=== PATIENT | female | born 1960 | race Caucasian/White ===

== ENCOUNTER → 2017-06-27 | Outpatient (CLI) | payer OTHER ==
[~2017-06-27] MED LIST: CHOL100027 PO; MULT1CHW4 PO; PRLSR20 PO; SERT1TAB68 PO
== END | disposition home or self-care (01) ==
LOC: C.LAB 07:58
PROVIDERS: ATTEND Family Medicine
DX: Z11.59 Encounter for screening for other viral diseases (principal)

== ENCOUNTER → 2017-06-27 | Outpatient (CLI) | payer OTHER ==
[2017-06-27 10:07] LABS: GLUCOSE,FASTING 87 mg/dl (70-99)
== END | disposition home or self-care (01) ==
LOC: C.LAB 08:03
PROVIDERS: ATTEND Family Medicine
DX: Z13.1 Encounter for screening for diabetes mellitus (principal); Z13.220 Encounter for screening for lipoid disorders

== ENCOUNTER → 2017-07-19 | Outpatient (CLI) | payer OTHER ==
[2017-07-19 09:26] LABS: CHOLESTEROL/HDL RATIO 2.9
== END | disposition home or self-care (01) ==
LOC: C.LABSPEC 07:57
PROVIDERS: ATTEND Family Medicine
DX: Z13.220 Encounter for screening for lipoid disorders (principal)

== ENCOUNTER → 2018-01-01 | Outpatient (CLI) | payer OTHER ==
--- NOTE | 2018-01-02 14:03 | MAMMOGRAPHY REPORT ---
BILATERAL DIGITAL SCREENING MAMMOGRAM TOMOSYNTHESIS WITH CAD: 01/01/2018 CLINICAL HISTORY: Routine screening. Patient has no complaints. TECHNIQUE: Breast tomosynthesis in addition to standard 2D mammography was performed. Current study was also evaluated with a Computer Aided Detection (CAD) system. COMPARISON: Comparison is made to exams dated: 09/07/2016 mammogram, 08/31/2015 mammogram, 03/17/2014 mammogram, 03/05/2013 mammogram, 02/28/2012 mammogram, and 02/20/2011 mammogram - [facility] enter. BREAST COMPOSITION: There are scattered areas of fibroglandular density in both breasts. FINDINGS: The parenchymal pattern is unchanged. No developing mass, architectural distortion or clus ter of suspicious microcalcifications is seen in either breast. IMPRESSION: ACR BI-RADS CATEGORY 2: BENIGN There is no mammographic evidence of malignancy. A 1 year screening mammogram is recommended. The pa tient will receive written notification of the results. Approximately 10% of breast cancers are not detected with mammography. A negative mammographic report should not delay biopsy if a clinically suggestive mass is present. Ivana Champion M.D. ay/:01/01/2018 18:03:08 Route Process Administrator: Denisse MERCEDES(Lizett)(Anjali)(BD), [facility] letter sent: Normal 1/2 BI-RADS Code: ACR BI-RADS Category 2: Benign
== END | disposition home or self-care (01) ==
LOC: C.MAMM 14:49
PROVIDERS: ATTEND Family Medicine
DX: Z12.31 Encounter for screening mammogram for malignant neoplasm of breast (principal)

== ENCOUNTER → 2018-07-17 | Outpatient (CLI) | payer OTHER | END | disposition home or self-care (01) | LOC: C.LAB 07:27 | PROVIDERS: ATTEND Family Medicine | DX: Z00.00 Encounter for general adult medical examination without abnormal findings (principal) ==

== ENCOUNTER 2021-01-18 04:57 | Observation (INO) ==
[2021-01-12 14:09] LABS: Basophils # (auto) 0.01 K/uL (0-0.2); Basophils % (auto) 0.2 %; Eosinophils # (auto) 0.01 K/uL (0-0.5); Eosinophils % (auto) 0.2 %; Hematocrit (blood only) 40.3 % (37-47); Hemoglobin 13.2 g/dL (12.0-16.0); Lymphocytes # (auto) 0.71 K/uL (1.2-3.4); Lymphocytes % (auto) 13.5 %; Mean Corpuscular Hemoglobin 30.3 pg (25-34); Mean Corpuscular Hgb Conc 32.8 g/dL (32-36); Mean Corpuscular Volume 92.6 fL (80-100); Mean Platelet Volume 10.1 fL (7.4-10.4); Monocytes # (auto) 0.05 K/uL (0.11-0.59); Neutrophils # (auto) 4.47 K/uL (1.4-6.5); Neutrophils % (auto) 85.1 %; Platelet Count 296 K/uL (130-400); RDW Coefficient of Variation 12.8 % (11.5-14.5); RDW Standard Deviation 43.7 fL (36.4-46.3); Red Blood Count 4.35 M/uL (4.2-5.4); White Blood Count 5.25 K/uL (4.8-10.8)
[2021-01-12 14:13] LABS: Partial Thromboplastin Ratio 1.1; Partial Thromboplastin Time 28.1 Seconds (21.0-31.0); Prothrombin Time 10.2 Seconds (9.0-12.0)
[2021-01-12 17:16] LABS: BUN Creatinine Ratio 20.1 (10-20); Blood Urea Nitrogen 18 mg/dl (7-18); Carbon Dioxide 22 mmol/L (21-32); Chloride 107 mmol/L (98-107); Glucose 160 mg/dl (70-99); Sodium 139 mmol/L (136-145)
--- NOTE | 2021-01-14 09:19 | Anesthesiology Consultation ---
Date of Service January 14, 2021 Assessment & Plan (1) Encounter for pre-operative examination: Chart Review Chart Review: Acceptable Risk for Surgery and Patient NOT seen in Pre Admission Testing Per nursing assessment 01/14/21, pt resides and works in [facility]. Works in [employer]- wears full PPE at work. Last day of work was 01/10/21- will not return until after surgery. Wears mask (N-95), uses good hand hygiene and socially distances. No known Covid positive contacts or Covid related symptoms. No known Covid infection in the past 90 days. Pt had preop Covid testing 01/12/21= negative. History Surgery Operation Date: 01/18/21 13:00 Proposed Procedures p Right Anterior Total Hip Arthroplasty - Thierry Skelton, Height/Weight Height: 5 ft 4 in Weight: 75.75 kg Allergies Allergy/AdvReac Type Severity Reaction Status Date / Time Sulfa (Sulfonamide Allergy Unknown TONGUE Verified 01/14/21 08:02 Antibiotics) SWELLING, RASH erythromycin base AdvReac Unknown VOMITING Verified 01/14/21 08:02 Medications Home Medications Medication Instructions Recorded Confirmed Last Taken multivitamin 1 tab PO QAM 07/22/19 01/14/21 Unknown escitalopram oxalate 10 mg tablet 10 mg PO HS 08/16/20 01/14/21 Unknown omeprazole 20 mg capsule,delayed 20 mg PO HS 12/20/20 01/14/21 Unknown release methylprednisolone 4 mg tablets in 4 mg PO UD #21 ea 01/11/21 01/14/21 Unknown a dose pack oxycodone-acetaminophen 5 mg-325 1 tab PO Q6H PRN #30 tab 01/11/21 01/14/21 Unknown mg tablet acetaminophen [Tylenol Extra 500 mg PO Q6H PRN 01/14/21 01/14/21 Unknown Strength] lactobacillus combination no.4 3,000 mmu cells PO HS 01/14/21 01/14/21 Unknown [Probiotic] Past Medical History Medical History GERD (gastroesophageal reflux disease) UNDER CONTROL History of depression Osteoarthritis Past Family History Family History Mother Bladder cancer Multiple sclerosis Father Prostate cancer Colorectal cancer Grandmother (Paternal) Family history of diabetes mellitus Past Surgical History Surgical History History of colonoscopy History of tonsillectomy and adenoidectomy History of wisdom tooth extraction Status post surgical removal of pilonidal cyst Social History Smoking Status: Never smoker Do You Dip or Chew Tobacco: No Hx Alcohol Use: Yes Alcohol type: beer and wine alcohol intake frequency: a few times a week Hx Substance Use: Yes substance use type: prescription drug Testing Laboratory Results 01/12/21 12:13 01/12/21 12:13 PT 10.2 Seconds (9.0-12.0) 01/12/21 12:13 INR 1.0 (0.9-1.1) 01/12/21 12:13 APTT 28.1 Seconds (21.0-31.0) 01/12/21 12:13 Blood Type O Positive 01/12/21 12:13 Antibody Screen NEGATIVE 01/12/21 12:13 Electrocardiogram Date: 01/13/21 Findings: + NSR @ (70bpm) Normal EKG. Chest X-Ray Date: 01/13/21 Findings: + NAD
--- NOTE | 2021-01-17 16:47 | History & Physical Report ---
Date of Service January 17, 2021 Assessment & Plan (1) Degenerative joint disease of right hip: We will proceed with a right anterior total hip arthroplasty. Postoperatively she will be placed on aspirin for DVT prophylaxis and kept overnight in the hospital for postoperative medical management. She plans to use [employer] upon discharge. History of Present Illness Chief Complaint: Primary osteoarthritis of the right hip. Primary Care Provider: Ruddy Shin DO Nitza is a pleasant 60-year-old female who is been doing with chronic increasing right hip and groin pain. X-rays and clinical examination have been diagnostic for advanced osteoarthritis of the right hip. We have tried conservative treatment including an intra-articular hip injection without much relief. Unfortunately her symptoms have become much worse recently. After failing conservative treatment, she has elected to proceed with a right anterior total hip arthroplasty.. Allergies Allergy/AdvReac Type Severity Reaction Status Date / Time Sulfa (Sulfonamide Allergy Unknown TONGUE Verified 01/14/21 08:02 Antibiotics) SWELLING, RASH erythromycin base AdvReac Unknown VOMITING Verified 01/14/21 08:02 Home Medications Medication Instructions Recorded Confirmed Type multivitamin 1 tab PO QAM 07/22/19 01/14/21 History escitalopram oxalate 10 mg tablet 10 mg PO HS 08/16/20 01/14/21 History omeprazole 20 mg capsule,delayed 20 mg PO HS 12/20/20 01/14/21 History release methylprednisolone 4 mg tablets in 4 mg PO UD #21 ea 01/11/21 01/14/21 Rx a dose pack oxycodone-acetaminophen 5 mg-325 1 tab PO Q6H PRN #30 tab 01/11/21 01/14/21 Rx mg tablet acetaminophen [Tylenol Extra 500 mg PO Q6H PRN 01/14/21 01/14/21 History Strength] lactobacillus combination no.4 3,000 mmu cells PO HS 01/14/21 01/14/21 History [Probiotic] Past Med/Surg History Medical History GERD (gastroesophageal reflux disease) UNDER CONTROL History of depression Osteoarthritis Surgical History History of colonoscopy History of tonsillectomy and adenoidectomy History of wisdom tooth extraction Status post surgical removal of pilonidal cyst Family History Mother Bladder cancer Multiple sclerosis Father Prostate cancer Colorectal cancer Grandmother (Paternal) Family history of diabetes mellitus Social History Smoking Status: Never smoker Second Hand Exposure: Yes (PARENTS SMOKED); Hx Alcohol Use: Yes Alcohol type: beer and wine Hx Substance Use: Yes Preferred Language: Korean Communication Ability: Effective Logistics Program Manager Required: No Beliefs That Will Affect Care: None Current Living Situation: Spouse and Family Feels Safe at Home: Yes Assistive Devices: Denture - Lower and Glasses Review of Systems All systems reviewed & are unremarkable except as noted in HPI & below. Physical Exam On physical examination of the right hip, she ambulates independently. Her leg lengths are equal. She has good range of motion of her hip but significant pain with forced internal and external rotation.. Constitutional WD/WN, vitals as above Eyes PERRL, conjunctivae normal, anicteric sclerae ENMT external ear and nose normal, oropharynx normal Neck trachea midline, no thyromegaly Respiratory normal respiratory effort Cardiovascular RRR, no murmur, no edema Gastrointestinal (Abdomen) normal bowel sounds, soft, nontender, no hepatosplenomegaly Psychiatric A+Ox3, euthymic affect Results & Data Results & Data Laboratory Results . Diagnostic Findings X-rays of the right hip do show advanced osteoarthritis with joint space narrowing, osteophyte formation, and [id number] articulation.. PG Care Time/CCT Total # of Minutes Spent Total Time Spent with Patient: Total time spent is greater than 50% in coordination of care (as documented) at patient's floor/unit and/or counseling patient: Coding Level of Care Code None Diagnoses Degenerative joint disease of right hip M16.11
[2021-01-18] MEDS ORDERED: dexAMETHasone 4 MG TAB PO SCH (06:00)
[2021-01-18] MEDS ORDERED: ROPIVACAINE 0.5% HCL/PF 150 MG, BUPIVACAINE 0.75% MPF 20 ML, EPINEPHrine 30MG/30ML (OR ... INSTIL SCH (06:00)
[2021-01-18] MEDS ORDERED: LR 500ML BOLUS, THEN 15ML/HR IV SCH (06:00)
[2021-01-18] MEDS ORDERED: TRANEXAMIC ACID 1,000 MG **IV Pre-op IV SCH (06:00)
[2021-01-18] MEDS ORDERED: ACETAMINOPHEN 500 MG TAB PO SCH (06:00)
[2021-01-18] MEDS ORDERED: LR 60ML/HR IV SCH (06:00)
[2021-01-18] MEDS ORDERED: GABAPENTIN 600 MG DOSE PO SCH (06:00)
[2021-01-18] MEDS ORDERED: FAMOTIDINE 20 MG TAB PO SCH (06:00)
[2021-01-18] MEDS ORDERED: ceFAZolin 1000MG 1,000 MG/7.5 ML SYR IV SCH (06:00)
[2021-01-18] MEDS ORDERED: TRANEXAMIC ACID 1,000 MG **IV Intra-op IV SCH (06:00)
[2021-01-18] MEDS ORDERED: BUPIVACAINE 0.5 % 5 MG/1 ML PF 10ML VIAL ONE (06:10)
[2021-01-18] MEDS ORDERED: fentaNYL citrate 100 MCG/2 ML VIAL IV PRN (06:33)
[2021-01-18] MEDS ORDERED: ATROPINE SULFATE 0.1 MG/ML 10ML SYR IV PRN (06:33)
[2021-01-18] MEDS ORDERED: ePHEDrine sulfate 50 MG/ML AMP IV PRN (06:33)
[2021-01-18] MEDS ORDERED: ONDANSETRON INJ 2 MG/ML 2 ML VIAL IV PRN ×2 (06:33→10:14)
--- NOTE | 2021-01-18 06:33 | History & Physical Bridge Note ---
Date of Service January 18, 2021 History & Physical Bridge Note I have examined the patient, reviewed the History & Physical and in the interval since the performance of the History & Physical I have noted the following changes of clinical significance: no changes noted
[2021-01-18] MEDS ORDERED: fentaNYL citrate 100 MCG/2 ML VIAL ONE (06:43)
[2021-01-18] MEDS ORDERED: MIDAZOLAM HCL 1 MG/ML 2ML VIAL ONE (06:43)
[2021-01-18] MEDS ORDERED: ORTHO JOINT ANESTHETIC ONE (07:04)
[2021-01-18] MEDS ORDERED: ONDANSETRON INJ 2 MG/ML 2 ML VIAL ONE (08:01)
[2021-01-18] MEDS ORDERED: LIDOCAINE HCL 2% 2 ML VIAL/AMP(20MG/ML) INFIL ONE (08:01)
[2021-01-18] MEDS ORDERED: PROPOFOL IV EMULSION 10 MG/ML 20 ML VIAL IV ONE (08:01)
--- NOTE | 2021-01-18 08:41 | Operative Report ---
PG Post Operative Report Pre & Post Diagnosis Operation Date: 01/18/21 07:15 Pre-Op Diagnosis: Right Hip Degenerative Joint Disease Post-Op Diagnosis: Right Hip Degenerative Joint Disease I identified the patient and participated in the time-out.: Yes Procedure Operation Date: 01/18/21 07:15 Actual Procedures p Right Anterior Total Hip Arthroplasty(Right) - Thierry Skelton DO Surgeon Thierry Skelton DO Piano Player Thierry Martin PAC Estimated Blood Loss 250 Findings Consistent with Post-Op Diagnosis Specimens Right humeral head Complications none Disposition Disposition: Recovery Room Indications Nitza is a pleasant 60-year-old female who presented my office with complaints of chronic increasing right hip and groin pain. X-rays and clinical examination were diagnostic for advanced osteoarthritis of the right hip. After failing conservative treatment, he elected to proceed with a right anterior total hip arthroplasty. Description of Procedure Implants used I used a Biomet Taperloc total hip arthroplasty system with a size 9 standard offset Taperloc stem, a 48 mm mm G7 cup with a 25mm screw, an E1 polyethylene liner, a 32 mm mm ceramic head with a -3 neck. Nitza arrived at the hospital for the above procedure. She was seen in the preoperative holding area and the operative extremity was identified and signed. She was given a spinal anesthetic, a preoperative antibiotic, and TXA. She was then taken back to the operating room and laid on the table in the supine position. She was given basic sedation. The operative leg was secured to a Puristst leg positioner. The hip was then prepped and draped in sterile fashion. A timeout was done and the patient and the operative extremity was properly identified. An anterior approach was used. Dissection was taken down through the fascia and the tensor muscle belly was retracted laterally and the rectus was retracted medially. The circumflex vessels were identified and ligated. The capsule was then incised and tagged for later repair. The femoral neck was then cut and the femoral head was removed. The acetabulum was exposed. Time was spent doing a complete circumferential labral release. Sequential reaming of the acetabulum up to a size 47 reamer was done. Final reamings were done under fluoroscopy to ensure appropriate version. A Biomet 48 mm G7 cup was then impacted into place. A single 25 mm screw was placed. The E1 polyethylene liner was then snapped into place. Surrounding soft tissues were then injected with 100 cc of an orthopedic pain control cocktail. The proximal femur was then exposed. Sequential broaching up to a size 9 broach was done. Off that broach a size 32 head with a -3 neck was trialed. The hip was reduced and fluoroscopic images showed anatomic alignment of the implants in acceptable length. The broach was removed. The final size 9 standard offset Taperloc stem was then impacted into place. A ceramic 32 mm head with a -3 neck was then impacted onto the stem and the hip was reduced. Final fluoroscopic images showed anatomic alignment of the hip. The capsule was then closed with #1 Vicryl suture. A dilute betadyne lavage was then done for 3 minutes. The joint was then irrigated with normal saline solution. The fascia was closed with #1 PDS suture. Skin was closed with 2-0 Vicryl, angela, and a Silverlon dressing. She was then transferred to a hospital bed and taken to the post anesthesia care unit in stable condition. She tolerated the procedure well. Thierry Martin PA-C, was present for the entire procedure. He was critical for patient positioning, prepping, draping, retraction exposure, wound closure and application of sterile dressing. I attest to the content of the Intraoperative Record and any orders documented therein. Any exceptions are noted below.
--- NOTE | 2021-01-18 08:42 | Fluoroscopy Report ---
FL hip RT 1V CLINICAL HISTORY: RIGHT ANTERIOR HIP COMPARISON STUDY: None. FLUOROSCOPY TIME: 26 seconds. FINDINGS: 2 fluoroscopic spot image the right hip demonstrate a right total arthroplasty. The hardwar e is intact. No fracture or dislocation. IMPRESSION: Fluoroscopy provided for right total hip arthroplasty. ACT 112: Negative or not required by law. Electronically signed by: Carlos Pedro M.D. 01/18/2021 8:40 AM
--- NOTE | 2021-01-18 09:42 | XRay Report ---
AP PELVIS, CROSSTABLE LATERAL RIGHT HIP History: Right total hip arthroplasty. Degenerative arthritis. Postop. FINDINGS: The patient is status post a right total hip arthroplasty. The hardware is intact. No fract ure or dislocation. Skin angela are in place. IMPRESSION: Right total hip arthroplasty. No evidence for hardware complication ACT 112: Negative or not required by law. Electronically signed by: Carlos Pedro M.D. 01/18/2021 9:41 AM
--- NOTE | 2021-01-18 09:52 | Anesthesiology Progress Note ---
Date of Service January 18, 2021 Anesthesia Post Procedure Vital Signs Vital Signs: Temp Pulse Pulse Resp BP Pulse Ox 01/18/21 09:30 67 16 110/70 97 01/18/21 09:25 36.4 C L 65 13 106/75 99 01/18/21 09:15 72 19 118/75 98 01/18/21 09:05 77 22 117/75 98 01/18/21 08:56 36.6 C 80 13 110/72 96 01/18/21 05:34 36.7 C 73 20 138/84 95 Pain Intensity Right Hip: Pain Intensity: 3 Transfer of Care Handoff Completed per policy Notes Mental Status: alert / awake / arousable and participated in evaluation Patient Amnestic to Procedure: Yes Nausea / Vomiting: adequately controlled Pain: adequately controlled Airway Patency, RR, SpO2: stable & adequate BP & HR: stable & adequate Hydration State: stable & adequate Neuraxial Anesthesia: was administered and sensory block is resolving Anesthetic Complications: no major complications apparent and Pt Satisfied with anesthetic care
[2021-01-18] MEDS ORDERED: METOCLOPRAMIDE HCL INJ 5 MG/ML 2 ML VIAL IV PRN (10:14)
[2021-01-18] MEDS ORDERED: MAGNESIUM HYDROXIDE SUSP 30 ML UDC PO PRN (10:14)
[2021-01-18] MEDS ORDERED: NALOXONE HCL 0.4 MG/1 ML VIAL/CARP IV PRN (10:14)
[2021-01-18] MEDS ORDERED: bisacodyL 10 MG SUPP PR PRN (10:14)
[2021-01-18] MEDS ORDERED: oxyCODONE HCL IR 5 MG TAB (IMMEDIATE RELEASE) PO PRN (10:14)
[2021-01-18] MEDS ORDERED: HYDROmorphone INJ 0.5 MG/0.5 ML SYR IV PRN (10:14)
[2021-01-18] MEDS: SODIUM CHLORIDE 0.9% 1000ML 1,000 ML IV SCH ×2 (11:53→23:24)
[2021-01-18] MEDS: MULTIVITAMIN TAB PO SCH (12:00)
[2021-01-18] MEDS: DOCUSATE SODIUM 100 MG CAP PO SCH ×2 (12:00→19:45)
[2021-01-18] MEDS: KETOROLAC 30 MG/ML VIAL IV SCH ×3 (12:00→23:01)
[2021-01-18] MEDS: ACETAMINOPHEN 500 MG TAB PO SCH ×2 (14:06→22:57)
[2021-01-18] MEDS: ceFAZolin 2000MG 2,000 MG/15 ML SYR IV SCH ×2 (14:06→22:57)
[2021-01-18] MEDS: ASPIRIN 81 MG ECTAB PO SCH (19:45)
[2021-01-18] MEDS ORDERED: SENNA 8.6 MG TAB PO SCH (21:00)
[2021-01-18] MEDS ORDERED: ESCITALOPRAM OXALATE 10 MG TAB PO SCH (21:00)
[2021-01-18] MEDS ORDERED: PANTOprazole 40 MG TAB PO SCH (21:00)
[2021-01-19] MEDS: KETOROLAC 30 MG/ML VIAL IV SCH (06:07)
[2021-01-19] MEDS: ACETAMINOPHEN 500 MG TAB PO SCH (06:08)
--- NOTE | 2021-01-19 06:44 | Orthopedic Progress Note ---
Date of Service January 19, 2021 Assessment & Plan (1) Status post right hip replacement: Overall she is doing well. She is having much pain in the right hip. She will be seen by physical therapy today for ambulation and range of motion exercises. She is on aspirin for DVT prophylaxis. She can be discharged home later today. She will follow-up with orthopedics in 2 weeks. Denzel Goddard was seen and examined at bedside this morning. Overall she is doing very well. She is not having much pain in the right hip. She has been up and ambulating to the bathroom. She has no complaints.. Review of Systems All systems reviewed & are unremarkable except as noted in HPI & below. Physical Exam On physical examination of the right hip, the dressing is clean and dry. Her leg lengths are equal. She has active dorsiflexion and plantarflexion of her right ankle.. Results & Data Results & Data Laboratory Results H & H 01/12/21 Range/Units 12:13 Hgb 13.2 (12.0-16.0) g/dL Hct 40.3 (37-47) % Coagulation 01/12/21 Range/Units 12:13 INR 1.0 (0.9-1.1) . Diagnostic Findings Postoperative x-rays of the right hip show the prosthesis to be in anatomic alignment without any evidence of fracture, dislocation, or loosening.. PG Care Time/CCT Total # of Minutes Spent Total Time Spent with Patient: Total time spent is greater than 50% in coordination of care (as documented) at patient's floor/unit and/or counseling patient: Coding Level of Care Code 93961 Post Operative Follow-Up Diagnoses Status post right hip replacement Z96.641
--- NOTE | 2021-01-19 06:45 | Discharge Summary ---
Date of Service January 19, 2021 Admission HPI (Per Admitting) Nitza is a pleasant 60-year-old female who is been doing with chronic increasing right hip and groin pain. X-rays and clinical examination have been diagnostic for advanced osteoarthritis of the right hip. We have tried conservative treatment including an intra-articular hip injection without much relief. Unfortunately her symptoms have become much worse recently. After failing conservative treatment, she has elected to proceed with a right anterior total hip arthroplasty.. Admission Exam (Per Admitting) On physical examination of the right hip, she ambulates independently. Her leg lengths are equal. She has good range of motion of her hip but significant pain with forced internal and external rotation.. Principal Diagnosis Same as "Discharge Diagnosis" noted below under Discharge Instructions. Discharge Exam On physical examination of the right hip, the dressing is clean and dry. Her leg lengths are equal. She has active dorsiflexion and plantarflexion of her right ankle.. Discharge Data Consultations 01/19/21 08:00 Consult Case Management - Discharge Planning Routine Procedures Performed Operation Date: 01/18/21 07:15 Actual Procedures p Right Anterior Total Hip Arthroplasty(Right) - Thierry Skelton DO Ordered Studies 01/18/21 07:15 FL fluoroscopy <1hr Routine FL hip RT 1V Routine Hospital Course (1) Status post right hip replacement: On January 18, 2021 Nitza arrived at [facility] and underwent a right anterior total hip arthroplasty without complication. She had a spinal anesthetic. Postoperatively she was started on aspirin for DVT prophylaxis and transferred to the general orthopedic floors. Her hospital course was uneventful. On postop day #1 her H&H was stable and her pain was well controlled. She was able to participate well with physical therapy doing ambulation and range of motion exercises. She was then discharged home. She will follow-up with orthopedics in 2 weeks. PG Care Time/CCT Total # of Minutes Spent Total Time Spent with Patient: Total time spent is greater than 50% in coordination of care (as documented) at patient's floor/unit and/or counseling patient: Discharge Plan Discharge Items Patient Disposition: Home - Home Health Services Reason For Visit: Right Hip Degenerative Joint Disease Discharge Diagnosis: Right hip replacement Activity: As commented below Non-emergency contact: Surgeon Call non-emergency contact if: your wound has increased redness and your wound has increased drainage Follow-up/Referrals: Rdudy Shin, [Primary Care Provider] - Diet: Regular Addtl Attending Provider Instructions: Activity and Therapy Recommendations: * If you are using [facility] then therapy will be provided at your home until they feel you have accomplished all of your goals. * If you are using [facility] then Physical Therapy will be provided until they feel you are ready to start Outpatient Physical Therapy. * If you are not using home therapy then Outpatient Physical Therapy should start about 3-5 days from your day of surgery. Therapy will last about 6-10 weeks * You were shown a series of exercises in the hospital. Do these exercises three times each day including the exercises you were shown in physical therapy. * Get up and walk several times each day.~ For the first four weeks, try not to stand or walk for more than one hour at a time. If you do stand or walk for more than one hour, you will not hurt anything, but your leg will likely swell.~~ * As you feel comfortable, you may change from the walker or crutches to a cane and~then to independent walking. Medications: * Narcotic You will likely be sent home from the hospital with a prescription for the narcotic pain medication that worked best throughout your stay. * Aspirin Most patients will be required to take Aspirin 81mg twice a day for 6 weeks after surgery. This is obtained [id number] and a prescription is not necessary. * Other medications may be prescribed for specific circumstances. If you have any questions, please call the office at . * Resume previous home medications unless otherwise instructed TEDs/Elastic Stockings: The white elastic stockings help limit swelling and prevent blood clots from forming in your legs. The more you wear them, the more they work. Wear them for six weeks. Dressing Care: Leave the Silverlon dressing in place for 7 days. After 7 days you may remove the dressing. If the incision is not draining then you may leave the angela open to air. If there is a little bit of drainage or if the angela are getting stuck on your clothing then cover the incision with a dry dressing. The angela will be removed at your 2 week follow-up appointment. Showering: You may shower with the Silverlon dressing in place. Do not let the shower spray hit the dressing directly. Pat the Silverlon dressing dry. If the dressing becomes wet underneath, then simply remove the dressing. Keep the incision dry until you are 7 days out from the day of surgery. After 7 days you may remove the Silverlon dressing and shower with the angela exposed. Let soapy water run over the angela and pat them dry. Do not scrub or soak the incision. Things To Watch For: * Drainage from the incision site that occurs more than one week after your surgery. * Increased redness at the incision site. * Fever above 102 degrees Fahrenheit. * Unusual chest pain or shortness of breath. * Call [facility] at with any of the above problems Follow-Up Visit: Follow-up with Dr. Skelton's PA (Thierry Martin) 2-3 weeks after your day of surgery. He will remove your angela and answer any questions. If you have any additional questions or concerns, Dr Skelton is usually in the office at the same time and will be available An appointment was probably scheduled when you signed-up for surgery in the office. If you have any questions call Office Instructions: More detailed instructions as well as Frequently Asked Questions were provided in a folder by our office when you signed-up for surgery. Please review these instructions when you get home. If you have any further questions or concerns, please feel free to call the office at [phone] Pending Studies at Discharge: No Stand-Alone Forms: [facility], Smoking Cessation Medications and DC Order Prescriptions: New aspirin 81 mg Tablet,Delayed Release (Dr/Ec) 81 mg PO BID 42 Days Qty: 0 RF: 0 Continued methylprednisolone 4 mg tablets,dose pack 4 mg PO UD Qty: 21 RF: 0 oxycodone-acetaminophen [Percocet] 5-325 mg tablet 1 tab PO Q6H PRN (Reason: pain) Qty: 30 RF: 0 multivitamin [Daily Multiple] tablet 1 tab PO QAM RF: 0 escitalopram oxalate 10 mg tablet 10 mg PO HS RF: 0 omeprazole 20 mg capsule,delayed release(DR/EC) 20 mg PO HS RF: 0 Probiotic 3 billion cell Capsule 3,000 mmu cells PO HS RF: 0 acetaminophen [Tylenol Extra Strength] 500 mg Capsule 500 mg PO Q6H PRN (Reason: Pain) RF: 0 Discharge Orders: Discharge Order (Routine); Ordered 01/19/21 Ordered By: Thierry Skelton Admission Data Admit Date/Time: 01/18/21 08:58 Attending Provider: Thierry Skelton Admit Provider: Thieryr Skelton Primary Care Provider: Ruddy Shin Other Providers: [facility]
[2021-01-19 07:16] LABS: Eosinophils # (auto) 0.01 K/uL (0-0.5); Eosinophils % (auto) 0.1 %; Hematocrit (blood only) 29.9 % (37-47); Hemoglobin 10.1 g/dL (12.0-16.0); Immature Granulocytes # (auto) 0.02 K/uL (0.00-0.02); Immature Granulocytes % (auto) 0.2 %; Lymphocytes # (auto) 1.71 K/uL (1.2-3.4); Lymphocytes % (auto) 14.2 %; Mean Corpuscular Hemoglobin 30.7 pg (25-34); Mean Corpuscular Hgb Conc 33.8 g/dL (32-36); Mean Corpuscular Volume 90.9 fL (80-100); Mean Platelet Volume 9.5 fL (7.4-10.4); Monocytes # (auto) 1.02 K/uL (0.11-0.59); Monocytes % (auto) 8.5 %; Neutrophils # (auto) 9.31 K/uL (1.4-6.5); Platelet Count 253 K/uL (130-400); RDW Coefficient of Variation 13.1 % (11.5-14.5); RDW Standard Deviation 43.6 fL (36.4-46.3); Red Blood Count 3.29 M/uL (4.2-5.4); White Blood Count 12.07 K/uL (4.8-10.8)
--- NOTE | 2021-01-19 07:38 | Anesthesiology Progress Note ---
Date of Service January 19, 2021 Anesthesia Post Procedure Vital Signs Vital Signs: Temp Pulse Pulse Resp BP BP Pulse Ox 01/19/21 07:23 36.6 C 63 18 104/65 98 01/19/21 03:20 36.8 C 69 17 96/58 L 98 01/18/21 22:40 36.3 C L 64 16 119/70 94 01/18/21 19:39 36.6 C 66 17 118/74 99 01/18/21 15:43 36.7 C 74 16 101/64 94 01/18/21 12:51 36.7 C 79 16 121/78 94 01/18/21 11:50 36.8 C 72 16 103/65 93 01/18/21 10:49 77 16 127/78 99 01/18/21 10:19 65 16 114/75 99 01/18/21 09:30 67 16 110/70 97 01/18/21 09:25 36.4 C L 65 13 106/75 99 01/18/21 09:15 72 19 118/75 98 01/18/21 09:05 77 22 117/75 98 01/18/21 08:56 36.6 C 80 13 110/72 96 Pain Intensity Right Hip: Pain Intensity: 1 Notes Mental Status: alert / awake / arousable and participated in evaluation Patient Amnestic to Procedure: Yes Nausea / Vomiting: adequately controlled Pain: adequately controlled Airway Patency, RR, SpO2: stable & adequate BP & HR: stable & adequate Hydration State: stable & adequate Neuraxial Anesthesia: was administered and sensory block resolved Anesthetic Complications: no major complications apparent and Pt Satisfied with anesthetic care
[2021-01-19 07:44] LABS: BUN Creatinine Ratio 24.8 (10-20); Calcium 8.5 mg/dl (8.5-10.1); Creatinine Clr Calc Pharmacy 73.3 ml/min; Est GFR (African American) 95.1; Est GFR (Non-African American) 82.1; Potassium 3.7 mmol/L (3.5-5.1)
[2021-01-19] MEDS: DOCUSATE SODIUM 100 MG CAP PO SCH (08:00)
[2021-01-19] MEDS ORDERED: dexAMETHasone 4 MG TAB PO SCH (08:00)
[2021-01-19] MEDS: MULTIVITAMIN TAB PO SCH (08:01)
[2021-01-19] MEDS: ASPIRIN 81 MG ECTAB PO SCH (08:01)
== END 2021-01-19 11:51 | disposition home health service (06) ==
LOC: ASU 04:57 → 3E 04:57